=== PATIENT | male | born 1945 | race Caucasian/White ===

== ENCOUNTER 2024-06-13 10:54 | Emergency (ER) | payer OTHER, SELFPAY ==
[2024-06-13 10:57] VITALS: BP 125/81
--- NOTE | 2024-06-13 12:08 | ED.GENMED ---
History of Present Illness
General
Chief Complaint: Nose Bleed
Source: patient and family
Exam Limitations: dementia
Time Seen by Provider: 06/13/24 11:21
Nursing documentation reviewed up to this point in time: agreed with
History of Present Illness
History of Present Illness:
78-year-old male past medical history of dementia A-fib hypertension presenting to the emergency department with a nosebleed to the left nostril today. This concluded prior to transfer but family wanted patient assessed. He denies any additional
symptoms.
Review of Systems
Review of Systems
Allergies reviewed?: Yes
All Other Systems: ROS reviewed and negative except as documented in HPI and ROS
Phy Exam
Physical Exam
Physical Exam:
GENERAL: Alert , in no apparent distress
EYE: pupils equal and reactive
NECK: Supple, no significant adenopathy.
ENT: Left nostril with a small cut covered over and clot no active bleeding no significant blood in the posterior pharynx no bleeding to the right nostril. o/p clr, mmm.
CARDIAC: Regular rate and rhythm .
LUNGS: Clear breath sounds bilaterally, no acute respiratory distress, no wheezes/rales/rhonchi
ABDOMEN: Soft, without focal tenderness, no r/g, no cvat
NEUROLOGICAL: Alert and oriented, no focal neuro deficits
SKIN: Warm and dry, skin intact.
MUSCULOSKELETAL: No edema, well perfused.
PSYCH: Normal and appropriate interaction.
Course
Vital Signs
Initial and Last Documented VS:
Initial Vital Signs
Temp Pulse Resp BP Pulse Ox
98.5 F 70 18 125/81 97
06/13/24 10:57 06/13/24 10:57 06/13/24 10:57 06/13/24 10:57 06/13/24 10:57
Last Documented Vital Signs
Temp Pulse Resp BP Pulse Ox
98.5 F 70 18 125/81 97
06/13/24 10:57 06/13/24 10:57 10/11/24 10:57 06/13/24 10:57 06/13/24 10:57
MDM/Problems Addressed
MDM/Problems Addressed:
78-year-old male presenting to the emergency department today with concerns of a nosebleed to the left side. No bleeding here small cut to the left nasal septum that likely was the culprit. Watched here for over an hour with no ongoing bleeding.
Small line of ointment placed to the area otherwise stable for discharge return precautions given.
*Critical Care Note
Total Time (30-74mins, 75-104mins- exclusive of procedures): Not Applicable
ED Attending Note
-
Portions of this chart may have been created with voice recognition software.� Occasional wrong word or��sound alike� substitutions may have occurred due to the inherent limitations of voice recognition software.
Discharge Plan
Departure
Patient Disposition: Home (Routine Discharge)
Date of Disposition: 06/13/24
Time of Disposition: 12:08
Patient with high blood pressure during this ER visit?: No
Condition: Good
Covid-19: Not Applicable
Discharge Problem:
Nosebleed
Instructions: Nosebleeds (DC)
Referrals:
Brittany Ge, DO [Family Provider] -
Activity Restrictions/Additional Instructions:
You came to the emergency department today with concerns of a nosebleed. You are found to have a small cut to your left nasal septum. This was covered in ointment and already had significant clotting. Please do not touch the area avoid any trauma
to the nose and apply twice daily to the area to keep it moist of rebleeding. Return for any worsening, new or concerning symptoms.
Interventions
Interventions:
*Risk Screen - Suicide Last Done: 06/13/24 10:57
*General Assessment Last Done: 06/13/24 10:57
*Neglect/Abuse Screening Last Done: 06/13/24 10:57
ED- Fall Risk Assessment Last Done: 06/13/24 11:23
*ED COVID-19 Vaccine History Last Done: 06/13/24 10:57
ED-EENT Assessment Last Done: 06/13/24 11:23
Discharge Date and Time
Print Language: ROMANIAN
[2024-06-13 12:28] VITALS: BP 134/76
[2024-06-13 15:20] VITALS: BP 134/76
== END 2024-06-13 15:26 | disposition home or self-care (01) ==
LOC: EMR 10:54
PROVIDERS: EMERGENCY PHYSICIAN Emergency Medicine; FAMILY PHYSICIAN Hospitalist
DX: R04.0 Epistaxis (principal); F03.90 Unspecified dementia, unspecified severity, without behavioral disturbance, psychotic disturbance, mood disturbance, and anxiety; I48.91 Unspecified atrial fibrillation; I10 Essential (primary) hypertension
CPT/HCPCS: 99282